=== PATIENT | female | born 1965 | race Caucasian/White ===

== ENCOUNTER 2020-09-11 16:24 | Emergency (ER) | payer OTHER ==
[~2020-09-11] VITALS: Ht 162.6 cm; Wt 108.9 kg
[2020-09-11] MEDS ORDERED: ZOFRAN IV STA (18:13)
--- NOTE | 2020-09-11 18:22 | ER.PDOC ---
General Chief Complaint: Requesting Medical Care Stated Complaint: FEVER/NAUSEA/DIARRHEA Time seen by MD: 18:22 Source: patient Exam Limitations: no limitations History of Present Illness Context: out of country/travel Severity/Quality: moderate Associated Symptoms (diarrhea): copious, watery Vital Signs First Vital Signs Date Time Temp Pulse Resp B/P (MAP) Pulse Ox O2 Delivery O2 Flow Rate FiO2 09/11/20 18:33 98.6 98 18 09/11/20 18:33 99 Last Vital Signs Date Time Temp Pulse Resp B/P (MAP) Pulse Ox O2 Delivery O2 Flow Rate FiO2 09/11/20 18:38 98.6 98 18 99 Reviewed Nursing Reviewed: Vital Signs, Abn. Noted All Other Systems: Reviewed and Negative Physical Exam General Appearance: No Apparent Distress, WD/WN HEENT: PERRL/EOMI, Normal ENT Inspection, TMs Normal, Pharynx Normal Neck: Non-Tender, Full Range of Motion, Supple, Normal Inspection Respiratory: chest non-tender, lungs clear, normal breath sounds, no respiratory distress, no accessory muscle use Cardiovascular: Normal Peripheral Pulses, Regular Rate, Rhythm, No Edema, No Gallop, No JVD, No Murmur Gastrointestinal: Normal Bowel Sounds, Non Tender, Soft Rectal: Normal Exam Back: Normal Inspection, No CVA Tenderness, No Vertebral Tenderness Extremities: Normal Range of Motion, Non-Tender, Normal Inspection, No Pedal Edema, No Calf Tenderness, Normal Capillary Refill, Pelvis Stable 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: 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 NML as Tested, No Motor/Sensory Deficits, Alert, Normal Mood/Affect, Oriented x 3 Skin: Normal Color, Warm/Dry Lymphatic: No Adenopathy Results/Orders Results/Orders Vital Signs Date Time Temp Pulse Resp B/P (MAP) Pulse Ox O2 Delivery O2 Flow Rate FiO2 09/11/20 18:38 98.6 98 18 99 09/11/20 18:33 98.6 98 18 99 09/11/20 18:33 98.6 98 18 Administered Medications Medications (Trade) Dose Ordered Sig/Julio Route PRN Reason Start Time Stop Time Status Last Admin Dose Admin Ondansetron HCl (Zofran) 4 mg STAT STAT IV 09/11/20 18:13 09/11/20 18:20 DC 09/11/20 18:53 4 MG Sodium Chloride 1,000 ml @ 0 mls/hr Q0M ONCE IV 3/12/21 18:30 09/11/20 18:31 DC 09/11/20 18:53 1,000 MLS/HR Laboratory Tests Test 09/11/20 00:00 09/11/20 17:51 09/11/20 18:39 09/11/20 18:55 White Blood Count 9.7 10^3/uL (4.5-11.0) Red Blood Count 4.89 10^6/uL (4.00-5.20) Hemoglobin 14.5 g/dL (12.0-15.0) Hematocrit 45.5 % (36.0-46.0) Mean Corpuscular Volume 93.0 fL (78-100) Mean Corpuscular Hemoglobin 29.7 pg (26-34) Mean Corpuscular Hemoglobin Concent 31.9 g/dL (33-36.5) L Red Cell Distribution Width 13.3 % (11.5-14.5) Platelet Count 292 10^3/uL (150-400) Mean Platelet Volume 9.3 fL (7.8-11.0) Neutrophils (%) (Auto) 82.9 % (41.0-85.0) Lymphocytes (%) (Auto) 8.4 % (24.0-44.0) L Monocytes (%) (Auto) 5.9 % (5.0-12.0) Neutrophils # (Auto) 8.1 10^3/uL (1.8-7.7) H Lymphocytes # (Auto) 0.82 10^3/uL1 (1.0-4.8) L Monocytes # (Auto) 0.6 10^3/uL (0.3-0.8) Absolute Immature Granulocyte (auto 0.03 10^3 u/L (0-2) Absolute Eosinophils (auto) 0.2 10^3/uL (0.0-0.2) Immature Granulocytes % 0.30 % (0.00-0.50) Eosinophils % 2.3 % (0.0-5.0) Basophils % 0.2 % (0.0-0.2) Basophils # 0.0 10^3/uL (0.0-0.1) Prothrombin Time 11.0 SEC (9.3-11.3) Prothrombin Time INR (Non-Therap) 1.1 Activated Partial Thromboplast Time 24.7 SEC (24.67-30.72) Sodium Level 122 mmol/L (132-145) L Potassium Level 3.8 mmol/L (3.6-5.2) Chloride Level 89.0 mmol/L (96-109) L Carbon Dioxide Level 26.5 mmol/L (20.0-32) Anion Gap 10.3 Blood Urea Nitrogen 11 mg/dL (7-18) Creatinine 0.94 mg/dL (0.59-1.40) Estimated GFR () 75.7 (>/=60) Est GFR (CKD-EPI)(Non-Afr Cambodian) 62.5 (>/=60) BUN/Creatinine Ratio 11.0 Glucose Level 120 mg/dL (70-110) H Calcium Level 8.7 mg/dL (8.4-10.5) Total Bilirubin 0.9 mg/dL (0.2-1.0) Aspartate Amino Transferase (AST) 22 U/L (0-35) Alanine Aminotransferase (ALT) 22 U/L (12-78) Alkaline Phosphatase 111 U/L (50-136) Total Protein 8.2 g/dL (6.4-8.2) Albumin 4.1 g/dL (3.4-5.0) Globulin 4.1 Albumin/Globulin Ratio 1.000 Amylase Level 43 U/L (25-115) Lipase 104 U/L (114-286) L Helicobacter pylori Screen NEGATIVE (NEGATIVE) POC Glucose 121 (70 - 110) H Influenza Type A Antigen NEGATIVE (NEG) Influenza B Immunofluorescence NEGATIVE (NEG) SARS-CoV-2 Antigen (Rapid) NEGATIVE (NEGATIVE) Group A Streptococcus Screen NEGATIVE (NEGATIVE) Urine Collection Type CCMS Urine Color YELLOW (YELLOW) Urine Appearance CLEAR (CLEAR) Urine Bilirubin NEGATIVE MG/DL (NEGATIVE) Urine Ketones NEGATIVE (NEGATIVE) Urine Specific [place] 1.015 (1.005-1.035) Urine pH 5.5 (5.0-6.0) Urine Protein NEGATIVE (NEGATIVE) Urine Urobilinogen NEGATIVE (NEGATIVE) Urine Nitrate NEGATIVE (NEGATIVE) Urine Leukocyte Esterase NEGATIVE (NEGATIVE) Urine Blood NEGATIVE (NEGATIVE) Urine Glucose NORMAL (NEGATIVE) Progress Progress TO DR KUMAR: This patient was checked out to me at 7:00 this evening when I came in. Dr. Loya had ordered lab work urine and CT scan of abdomen. Patient also had flu Covid and strep testing done all of her results are now back and all of them are perfectly fine. I did go visit with her and it does seem that all she has is a viral syndrome with some body aches and nausea. The only thing she is literally requesting is some Phenergan for her nausea and some kind of medicine for her headache. ER DEPART Departure Time of Disposition: 20:13 Disposition: 01 HOME, SELF-CARE Impression: Primary Impression: Viral syndrome Condition: Stable Referrals: PCP,UNKNOWN (PCP) PRIMARY CARE PROVIDER Comments Phenergan 25mg, one po q4-6hrs prn n/v, #20, Tramadol 50mg, one po tid prn RIVAS, #20 Duration or Time Spent with Pa: 15m MAYELA MAGAÑA MD Sep 11, 2020 18:22 STEVE KUMAR MD Sep 11, 2020 20:15
[2020-09-11 18:28] LABS: BASOPHIL % 0.2 % (0.0-0.2); EOSINOPHIL # 0.2 10^3/uL (0.0-0.2); EOSINOPHIL % 2.3 % (0.0-5.0); LYMPHOCYTES # 0.82 10^3/uL1 (1.0-4.8); LYMPHOCYTES % 8.4 % (24.0-44.0); MEAN CORP HGB 29.7 pg (26-34); MONOCYTES # 0.6 10^3/uL (0.3-0.8); MONOCYTES % 5.9 % (5.0-12.0); NEUTROPHIL # 8.1 10^3/uL (1.8-7.7); NEUTROPHILS % 82.9 % (41.0-85.0); PLATELET COUNT 292 10^3/uL (150-400); RED CELL DISTRIBUTION WIDTH 13.3 % (11.5-14.5)
[2020-09-11] MEDS ORDERED: NS 1000ML 1,000 ML IV ONE (18:30)
[2020-09-11 18:33] VITALS: BP 150/96
[2020-09-11] MEDS ORDERED: NS 100ML 100 ML IV ONE (18:36)
[2020-09-11] MEDS ORDERED: ZOFRAN ONE (18:36)
[2020-09-11 18:45] LABS: CALCIUM 8.7 mg/dL (8.4-10.5); CARBON DIOXIDE 26.5 mmol/L (20.0-32)
--- NOTE | 2020-09-11 18:50 | NUR ---
REPORTS RECEIVED, FLU/STREP/COVID SWAB OBTAINED. 1 LITER NS FLUID BOLUS INITIATED AND ZOFRAN 4 MG IP TO 20 GA R FA DELIVERED.
--- NOTE | 2020-09-11 18:54 | DIREP ---
PROCEDURE:CT ABDOMEN/PELVIS W/O CONTRAST COMPARISON:None. INDICATIONS:NAUSEA, DIARRHEA TECHNIQUE:Axial images were created through the abdomen and pelvis without intravenous contrast material. No oral contrast was administered. Sagittal and coronal reconstructions were performed from source images. FINDINGS: LUNG BASES:Normal. No visible pulmonary or pleural disease. LIVER:Normal. No significant liver lesions are identified. BILIARY:Postcholecystectomy changes are seen. PANCREAS:Normal. No lesion, fluid collection, ductal dilatation, or atrophy. SPLEEN:Normal. No enlargement or focal lesion. ADRENALS:Normal. No mass or enlargement. URINARY TRACT:Normal. No focal lesions or hydronephrosis. AORTA/VASCULAR:Normal. No aneurysm. RETROPERITONEUM:Normal. No mass or adenopathy. BOWEL/MESENTERY:Normal. There is no intestinal obstruction, free fluid, free air or mesenteric inflammatory changes. The appendix is not visualized. ABDOMINAL WALL:Normal. No mass or hernia. PELVIC ORGANS:Post hysterectomy changes are seen. BONES:Diffuse degenerative changes are seen in the lumbar spine with multilevel degenerative disc disease with vacuum disc at L2-3 through L4-5. OTHER:Negative. CONCLUSION:No acute abnormalities are seen in the abdomen pelvis. Postcholecystectomy and hysterectomy changes are seen. Dictated by: Leodan Hoover M.D. on 09/11/2020 at 06:44 PM
[2020-09-11 19:41] LABS: APPEARANCE,URINE CLEAR (CLEAR); UA COLOR YELLOW (YELLOW)
[2020-09-11 19:42] LABS: BILIRUBIN,URINE NEGATIVE (NEGATIVE); UROBILINOGEN,URINE NEGATIVE (NEGATIVE)
--- NOTE | 2020-09-11 20:36 | NUR ---
DISCHARGE DC INSTRUCTIONS GIVEN, PRESCRIPTIONS GIVEN X 2 PHENERGAN 25 MG TAKE 1 TAB PO Q 4-6 HOURS.
--- NOTE | 2020-09-11 20:36 | NUR ---
DC CONT PRECRPTIONS GIVEN, DISCUSSED LAB RESULTS AND CT RESULTS ALONG WITH FINDINGS. PT VERBALIZED UNDERSTANDING OF INSTRUCTIONS WELL PRESCRIPTIONS. PT A & O X3, MILD PAIN 09/09. VITALS WNL. DC'D 22 GA R FA, TIP INTACT. PT ELIDA WELL. PT AMBULATED TO POV W/OUT DIFFICULTY.
== END 2020-09-11 20:36 | disposition home or self-care (01) ==
LOC: ER 16:24
DX: B34.9 Viral infection, unspecified (principal); Z79.899 Other long term (current) drug therapy; Z20.822 Contact with and (suspected) exposure to COVID-19
CPT/HCPCS: 74176; 80053; 81003; 82150; 82948; 83690; 85025; 85610; 85730; 86677; 87070; 87426; 87804 ×2; 87880; 96361; 96374; 99284; J2405; J7050

== ENCOUNTER 2023-12-24 14:17 | Emergency (ER) | payer OTHER, MEDICARE ==
[~2023-12-24] VITALS: Ht 167.6 cm; Wt 129.7 kg
[2023-12-24 14:17] VITALS: BP 180/108; PULSE 72; RESP 18; TEMP 98.2; O2SAT 95
[2023-12-24] MEDS ORDERED: CLEOCIN ONE (14:43)
[2023-12-24] MEDS ORDERED: ZOFRAN ODT ONE (14:43)
[2023-12-24] MEDS: ZOFRAN ODT SL STA (14:46)
[2023-12-24] MEDS: CLEOCIN PO SCH (14:46)
[2023-12-24] MEDS ORDERED: CLIN150C17 PO (14:57)
[2023-12-24 15:05] VITALS: BP 151/86; PULSE 87; RESP 18; TEMP 98.2; O2SAT 95
== END 2023-12-24 15:05 | disposition home or self-care (01) ==
LOC: ER 14:17
DX: S90.821A Blister (nonthermal), right foot, initial encounter (principal); E11.9 Type 2 diabetes mellitus without complications; I10 Essential (primary) hypertension; Z88.0 Allergy status to penicillin; Z88.5 Allergy status to narcotic agent; Z90.49 Acquired absence of other specified parts of digestive tract; Z90.710 Acquired absence of both cervix and uterus; X58.XXXA Exposure to other specified factors, initial encounter; Y93.89 Activity, other specified; Y92.89 Other specified places as the place of occurrence of the external cause; Y99.8 Other external cause status
CPT/HCPCS: 99283; 73630; J8499